=== PATIENT | male | born 2000 | race Caucasian/White ===

== ENCOUNTER 2021-01-31 10:16 | Emergency (ER) | payer BC, SELFPAY ==
[2021-01-31 10:23] VITALS: BP 154/83; PULSE 94; RESP 18; TEMP 36.5; O2SAT 100
--- NOTE | 2021-01-31 10:31 | ED.WOUNDLAC ---
HPI - Wound/Laceration General Chief Complaint: Wound/Laceration Stated Complaint: Cut finger on Lt hand Time Seen by Provider: 01/31/21 10:31 Source: patient Mode of arrival: ambulatory Limitations: no limitations History of Present Illness HPI narrative: Joseph Reddy is a 20 yo mal with no PMH who comes with a laceration to palm about an inch long at base of R second finger. controlled bleeding. needs tetanus vaccine Related Data Home Medications Medication Instructions Recorded Confirmed No Home Medications 01/31/21 01/31/21 Allergies Allergy/AdvReac Type Severity Reaction Status Date / Time Penicillins Allergy Intermediate Swelling Verified 01/31/21 10:36 of Lip/Tongue/Throat Bumble Bee Allergy Severe Dyspnea / Uncoded 01/31/21 10:36 SOB Wasp Allergy Severe Dyspnea / Uncoded 01/31/21 10:36 SOB Review of Systems Review of Systems: CONSTITUTIONAL: Denies fever, chills, sweats. EYES: Denies visual changes, redness, discharge. ENT: Denies rhinorrhea, congestion, sore throat, otalgia. CARDIOVASCULAR: Denies chest pain, palpitations, edema. RESPIRATORY: Denies dyspnea, wheezing, cough GASTROINTESTINAL: Denies abdominal pain, nausea, vomiting, diarrhea. GENITOURINARY: Denies dysuria, hematuria, abnormal discharge SKIN: Denies rash or itching. Laceration to left hand at the base of the second finger, 1 inch long NEUROLOGIC: Denies numbness, or focal weakness. PSYCHIATRIC: Denies anxiety or depression. PMFSH Past Medical History Medical History No acute medical problems Comments At time of signature, I agree with nursing past medical, surgical, social and family history. There is no relevant family history pertinent to the presenting complaint. Patient's blood pressure is elevated due to being in urgent care for laceration Exam Narrative: GENERAL: This is a well-nourished, well-developed patient, in mild distress. HEAD: normocephalic, atraumatic. EYES: Sclera clear/white. Vision is grossly intact. EARS: External ears normal, auditory canals clear and without drainage, TMs normal without perforation. Hearing grossly intact. NOSE: External nose normal without nasal discharge, nares without redness, no rhinorrhea. THROAT: Mucous membranes moist, NECK: Neck supple CARDIOVASCULAR: Regular rate and rhythm without murmurs, gallops, or rubs. RESPIRATORY: Clear to auscultation. Breath sounds equal bilaterally. No wheezes, rales, or rhonchi. GASTROINTESTINAL: Abdomen soft, SKIN: warm, intact with no suspicious lesions or rash, good texture and turgor. 2 cm laceration horizontal to base of finger 2 NEURO: awake, alert, and oriented to person, place and time. There were no obvious focal neurologic abnormalities. Steady gait EXTREMITIES: Normal range of motion. BACK: Nontender without deformity Course Course Emergency Course: Patient comes for a small laceration on L hand, palmar side, from weed eater 3 Sutures placed after cleaning wound and anesthetizing with 2.6 cc of lidocaine 1% without epi. Vicryl No. 4 placed, instructions given, patient tolerated well Vital Signs Vital signs: Vital Signs Temperature 97.7 F 01/31/21 10:23 Pulse Rate 94 01/31/21 10:23 Respiratory Rate 18 01/31/21 10:23 Blood Pressure 154/83 H 01/31/21 10:23 Pulse Oximetry 100 01/31/21 10:23 Temperature 97.7 F 01/31/21 10:23 Pulse Rate 94 01/31/21 10:23 Respiratory Rate 18 01/31/21 10:23 Blood Pressure 154/83 H 01/31/21 10:23 Pulse Oximetry 100 01/31/21 10:23 Procedures Laceration Laceration 1: Date: 01/31/21 Time: 11:00 Site: hand Side (If applicable): left Size (cm): 2 Description: linear Depth: simple, single layer Local Anesthetic: lidocaine 1% Amount of anesthesia used (mL): 2.6 Pre-repair: irrigated ====== Skin Level ====== Skin la
[2021-01-31] MEDS: TETANUS,DIPHTHERIA,AC PERTUSSIS ADULT (0.5 ML) BOOSTRIX IM (11:00)
== END 2021-01-31 11:10 | disposition home or self-care (01) ==
PROVIDERS: Emergency Provider Nurse Practitioner
DX: S61.412A Laceration without foreign body of left hand, initial encounter (principal); Z23 Encounter for immunization; W45.8XXA Other foreign body or object entering through skin, initial encounter
CPT/HCPCS: 12001; 90471; 90715; 99212; G0463

== ENCOUNTER 2023-08-01 17:02 | Emergency (ER) | payer OTHER, BC, SELFPAY ==
--- NOTE | ~2023-08-01 | XR_ITS ---
XR hand RT min 3V Ordering provider: Jesse Zheng PA-C History: . R third finger traumatic injury . Comparison: None. FINDINGS: BONES: No acute fracture or dislocation. JOINT SPACES: Well maintained. SOFT TISSUES: Unremarkable. IMPRESSION: No acute osseous abnormality right hand. Reviewed, dictated and finalized at location A.
[2023-08-01 17:10] VITALS: BP 135/78; PULSE 85; RESP 19; TEMP 36.8; O2SAT 100
--- NOTE | 2023-08-01 17:16 | ED.UPPEXIN ---
HPI - Extremity Injury (Upper) General Chief Complaint: Extremity Injury, Upper Stated Complaint: R middle finger injury at work Time Seen by Provider: 08/01/23 17:11 Source: patient Mode of arrival: ambulatory Limitations: no limitations History of Present Illness HPI narrative: This is a 23-year-old male who presents to the ED with chief complaint of right middle finger injury that occurred today while at work. 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 He was using a pipe for leverage when the pipe slipped. It went directly into his right middle finger. He reports pain there and somewhat in the right 4th finger. Denies any further sites of pain or injury. denies laceration. Denies numbness or weakness. Related Data Home Medications Medication Instructions Recorded Confirmed No Home Medications 01/31/21 01/31/21 Allergies Allergy/AdvReac Type Severity Reaction Status Date / Time Penicillins Allergy Intermediate Swelling Verified 01/31/21 10:36 of Lip/Tongue/Throat Bumble Bee Allergy Severe Dyspnea / Uncoded 01/31/21 10:36 SOB Wasp Allergy Severe Dyspnea / Uncoded 01/31/21 10:36 SOB Review of Systems Review of Systems: All systems as dictated in HPI [facility] Past Medical History Medical History No acute medical problems Exam Narrative: GENERAL: Well-appearing, well-nourished, and in no acute distress. HEAD: Normocephalic, atraumatic. EYES: PERRLA and EOMI. MSK: Tenderness to the proximal the right 3rd finger. No bruising. No deformity. Neurovascular intact distally. Able make fist SKIN: Warm, dry, no rash. NEURO: Alert and oriented x4. No focal deficits. PSYCH: Normal mood and affect. Course Vital Signs Vital signs: Vital Signs Temperature 98.3 F 08/01/23 17:10 Pulse Rate 85 08/01/23 17:10 Respiratory Rate 08/01/23 17:10 Blood Pressure 135/78 08/01/23 17:10 Pulse Oximetry 100 08/01/23 17:10 Temperature 98.3 F 08/01/23 17:10 Pulse Rate 85 08/01/23 17:10 Respiratory Rate 19 08/01/23 17:10 Blood Pressure 135/78 08/01/23 17:10 Pulse Oximetry 100 08/01/23 17:10 MDM - Extremity Injury (Upper) MDM Narrative Medical decision making narrative: this is a 23-year-old male who presents to the ED with chief complaint of right middle finger injury that occurred a an hour prior to arrival. Vitals are normal. Exam shows proximal tenderness to the right middle finger. X-ray shows no acute fracture Symptoms consistent with contusion Pt will be discharged in stable condition. Return precautions given and supportive measures discussed. Pt is understanding and agreeable with plan for discharge and follow-up with PCP. Discharge Plan Discharge Clinical Impression: Injury of right middle finger Patient Disposition: Home, Self-Care Condition: Stable Instructions: Antibiotic Form Additional Instructions: your exam and imaging today are reassuring overall. No fracture detected. Continue with Tylenol and ibuprofen every 6 hours as needed for pain and swelling. If you have any new or worsening symptoms please return to the ER for further evaluation. Prescriptions: No Action No Home Medications Follow-up/Referrals: PHYSICIAN,CHUTE GREASER [Primary Care Provider] - Time of Disposition: 17:40
[2023-08-01 18:17] VITALS: BP 127/62; PULSE 89; RESP 17; TEMP 36.8; O2SAT 100
== END 2023-08-01 18:13 | disposition home or self-care (01) ==
PROVIDERS: Emergency Provider Physician Assistant
DX: S69.91XA Unspecified injury of right wrist, hand and finger(s), initial encounter (principal); W22.8XXA Striking against or struck by other objects, initial encounter
CPT/HCPCS: 73130; 99283

== ENCOUNTER 2023-11-29 08:02 | Emergency (ER) | payer BC, SELFPAY ==
[2023-11-29 08:14] VITALS: BP 125/74; PULSE 72; RESP 18; TEMP 36.6; O2SAT 100
--- NOTE | 2023-11-29 08:14 | ED.GENADULT ---
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 He reports that symptoms have been present for 4-5 years, but have gotten significantly worse over the past few days. He has been taking ibuprofen with no relief. He denies any outright injury or trauma, but does state that he has been working 12 hour days 6-7 days a week recently, and this is when symptoms worsened. He has no other concerns at this time Related Data Allergies Allergy/AdvReac Type Severity Reaction Status Date / Time Penicillins Allergy Intermediate Swelling Verified 11/29/23 08:18 of Lip/Tongue/Throat Bumble Bee Allergy Severe Dyspnea / Uncoded 01/31/21 10:36 SOB Wasp Allergy Severe Dyspnea / Uncoded 01/31/21 10:36 SOB Review of Systems Review of Systems: All systems reviewed & are unremarkable except as noted in HPI and below Constitutional: Constitutional: Reports no additional constitutional complaints ENT: Reports system reviewed and no additional complaints, except as documented Cardiovascular: Cardiovascular: Reports no additional cardiovascular complaints Respiratory: Respiratory: Reports no additional respiratory complaints Gastrointestinal: Gastrointestinal: Reports no additional gastrointestinal complaints Musculoskeletal: Musculoskeletal: Reports as per HPI, Reports numbness and Reports tingling PMFSH Past Medical History Medical History No acute medical problems Comments At the time of my signature, I reviewed and agree with the nursing past medical, surgical, social, and family history. There is no relevant family history pertinent to the patient complaint. Exam Const: General: cooperative, no acute distress, alert and awake Orientation/consciousness: oriented to person, oriented to place and oriented to time HENMT: Head: normal to inspection Resp: Effort & Inspection: normal respiratory effort and able to speak in complete sentences Auscultation: clear to auscultation bilaterally, no crackles, no rales, no rhonchi and no wheezes Cardio: Palpation: normal PMI Rate: regular rate Rhythm: regular rhythm Heart sounds: S1 normal heart sound present and S2 normal heart sound present Neuro: General: oriented to person, oriented to place and oriented to time Cranial nerves: Yes CN's II-XII intact bilaterally Motor exam (neuro): 5/5 motor strength present throughout and Normal motor muscle tone present throughout Sensory Exam: normal sensation Psych: Appearance: grossly normal Thought process: Normal thought process present Insight: Good insight present (Psych) Judgement: Good judgement present (Psych) Course Course Level of Care: Express Care Visit Vital Signs Vital signs: Reviewed Medical Decision Making MDM Narrative Medical decision making narrative: normal physical exam, symptoms likely secondary to overuse. Start prednisone for 5 days, work note for 2 days. Follow with primary care provider, emergency department for new or worse symptoms Discharge instructions reviewed with patient, as well as provided in writing per nursing staff. The instructions also include specific and strict return/GO TO THE ER as well as f/u information. All questions have been answered, and the patient deny any further questions with discharge and discharge plan. Some parts of this dictation were generated by voice recognition software and may contain typographical and/or grammatical inaccuracies. Vital Signs Vital Signs: reviewed Lab Data Lab results reviewed: Yes I reviewed the patient's lab results. Lab results
== END 2023-11-29 08:37 | disposition home or self-care (01) ==
PROVIDERS: Emergency Provider Nurse Practitioner Family
DX: R20.2 Paresthesia of skin (principal)
CPT/HCPCS: 99213; G0463